=== PATIENT | female | born 1965 | race Caucasian/White ===

== ENCOUNTER → 2021-07-17 12:56 | Outpatient (CLI) | payer BC, SELFPAY ==
--- NOTE | ~2021-07-17 | DEXA_ITS ---
Bone Density Report Name: KAITLIN SANTAMARIA Age: 56 Sex: Female Ethnicity: White Date of : 1965 Indication: monitoring treatment; height loss; Referring Provider: LILLIE, LANA Ward Study: Bone densitometry was performed. Exam Date: July 17, 2021 Accession number: [id number] Bone Density: Region BMD T-score Z-score Classification AP Spine (L1-L4) 0.993 -0.5 0.5 Normal Femoral Neck (Left) 0.921 0.7 1.7 Normal Total Hip (Left) 1.166 1.8 2.5 Normal Femoral Neck (Right) 0.964 1.0 2.1 Normal Total Hip (Right) 1.115 1.4 2.1 Normal Total Hip Mean 1.141 1.6 2.3 Normal World Health Organization criteria for BMD impression classify patients as: Normal (T-score at or above -1.0), Osteopenia (T-score between -1.0 and -2.5), or Osteoporosis (T-score at or below -2.5). 10-year Fracture Risk: FRAX not reported because: Premenopausal woman All T-scores for Spine Total, Hip Total, Femoral Neck at or above -1.0 Treated for osteoporosis Previous Exams: Region Exam Age BMD T-score BMD Change BMD Change Date g/cm2 vs Baseline vs Previous AP Spine(L1-L4) 07/17/2021 56 0.993 -0.5 0.017 0.017 04/01/2015 50 0.976 -0.6 Total Hip(Left) 07/17/2021 56 1.166 1.8 0.007 0.007 04/01/2015 50 1.158 1.8 Total Hip(Right) 07/17/2021 56 1.115 1.4 0.041* 0.041* 04/01/2015 50 1.074 1.1 *Denotes significance at 95% confidence level, LSC for AP Spine = 0.022 g/cm2, LSC for Total Hip = 0.027 g/cm2 Clinical Information Provided by Patient: Smokes Is being treated for osteoporosis Has used the following medications: HRT (i.e. estrogen/hormone therapy), Vitamin D, Calcium, MTV Patient maximum height was 66.75 No regular weight bearing exercise Drinks caffeinated beverages Onset of menses at age 15 Premenopausal Number of children 2 Impression: The patient's bone mass is within expected range for age, gender and ethnicity. The patient has risk factors, including: smoking. No significant bone loss was observed. Discussion: PATIENT UNDER TREATMENT WITH NO SIGNIFICANT BMD LOSS SINCE LAST EXAM. In an untreated patient, BMD typically declines with age. A lack of decline or gain is usually a sign that treatment is efficacious and fracture risk is reduced. It is important to ask patients whether they are taking their medications and to encourage continued and appropriate compliance with their ost
== END ==
PROVIDERS: PCP Internal Medicine; Visit Provider Internal Medicine
DX: M81.0 Age-related osteoporosis without current pathological fracture (principal)
CPT/HCPCS: 77080